=== PATIENT | female | born 1955 | race Caucasian/White ===

== ENCOUNTER 2017-08-03 06:22 | Day surgery (SDC) | payer OTHER | END 2017-08-03 13:50 | disposition home or self-care (01) | LOC: AMB-ENDOS 06:22 | DX: K57.20 Diverticulitis of large intestine with perforation and abscess without bleeding (principal); K64.1 Second degree hemorrhoids; Z12.11 Encounter for screening for malignant neoplasm of colon ==

== ENCOUNTER 2017-09-03 12:00 | Inpatient (IN) | payer OTHER ==
[~2017-09-03] VITALS: Ht 154.9 cm; Wt 58.1 kg
== END 2017-09-14 14:48 | disposition home or self-care (01) | DRG 330 ==
LOC: SURG 09-11 05:50 → O/R 09-11 05:50 → SURH 09-11 07:00 → SURG 09-11 10:04 → SURH 09-11 12:00 → SURG 09-14 14:48
PROVIDERS: Colon & Rectal Surgery
PROC: 0DJD8ZZ Inspection of Lower Intestinal Tract, Via Natural or Artificial Opening Endoscopic (ICD-10-PCS; 2017-09-11)
PROC: 0DTE4ZZ Resection of Large Intestine, Percutaneous Endoscopic Approach (ICD-10-PCS; principal; 2017-09-11 07:00)
DX: K57.20 Diverticulitis of large intestine with perforation and abscess without bleeding (principal); D64.89 Other specified anemias